=== PATIENT | female | born 1990 | race Two or more races ===

== ENCOUNTER 2024-07-16 13:37 | Observation (INO) | payer OTHER ==
[~2024-07-16] VITALS: Ht 154.9 cm; Wt 61.5 kg
--- NOTE | 2024-07-16 14:01 | ED.PDOC ---
History of Present Illness HPI Comments 33 y/o F, with a Hx of DM, presents with c/o abdominal cramping and vaginal spotting, today. Patient reports on being 28x weeks with her 4th ([id number]), currently, and reports on sudden and unprovoked onset of symptoms 2x hours prior to ED arrival. She reports no recent injuries. Patient denies any nausea, vomiting, urinary symptoms, fever, or chills at this time. 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 Family History Family History: Unknown Social History Smoker: Non-Smoker Alcohol: Denies ETOH Use Drugs: Denies Drug Use Lives In: Home Constitutional: denies: chills, diaphoresis, fatigue, fever, malaise, sweats, weakness, others EENTM: denies: blurred vision, double vision, ear bleeding, ear discharge, ear drainage, ear pain, ear ringing, eye pain, eye redness, hearing loss, mouth pain, mouth swelling, nasal discharge, nose bleeding, nose congestion, nose pain, photophobia, tearing, throat pain, throat swelling, voice changes, others Respiratory: denies: cough, hemoptysis, orthopnea, SOB at rest, shortness of breath, SOB with excertion, stridor, wheezing, others Cardiovascular: denies: chest pain, dizzy spells, diaphoresis, Dyspnea on exertion, edema, irregular heart beat, left arm pain, lightheadedness, palpitations, PND, syncope, others Gastrointestinal: reports: abdominal pain; denies: abdomen distended, blood streaked bowels, constipated, diarrhea, dysphagia, difficulty swallowing, hematemesis, melena, nausea, poor appetite, poor fluid intake, rectal bleeding, rectal pain, vomiting, others Genitourinary: reports: abnormal vagina bleeding; denies: burning, dyspareunia, dysuria, flank pain, frequency, hematuria, incontinence, pain, , vagina discharge, urgency, others Neurological: denies: dizziness, fainting, headache, left sided numbness, left sided weakness, numbness, paresthesia, pre-existing deficit, right sided numbness, right sided weakness, seizure, speech problems, tingling, tremors, weakness, others Musculoskeletal: denies: back pain, gout, joint pain, joint swelling, muscle pain, muscle stiffness, neck pain, others Integumetry: denies: bruises, change in color, change in hair/nails, dryness, laceration, lesions, lumps, rash, wounds, others Allergic/Immunocompromised: denies: Difficulty Healing, Frequent Infections, Hives, Itching, others Hematologic/Lymphatic: denies: anemia, blood clots, easy bleeding, easy bruising, swollen glands, others Endocrine: denies: excessive hunger, excessive sweating, excessive thirst, excessive urination, flushing, intolerance to cold, intolerance to heat, unexplained weight gain, unexplained weight loss, others Psychiatric: denies: anxiety, bipolar disorder, depression, hopeless, panic disorder, schizophrenia, sleepless, suicidal, others All Other Systems: Reviewed and Negative Physical Exam General Appearance: No Apparent Distress HEENT: Normal ENT Inspection, Pharynx Normal, TMs Normal Neck: Full Range of Motion, Non-Tender, Normal, Normal Inspection Respiratory: Chest Non-Tender, Lungs Clear, No Accessory Muscle Use, No Respiratory Distress, Normal Breath Sounds Cardiovascular: No Edema, No JVD, No Murmur, No Gallop, Normal Peripheral Pulses, Regular Rate/Rhythm Breast Exam: Deferred Gastrointestinal: Non Tender, No Pulsatile Mass, Normal Bowel Sounds, Soft, Other (Gravid uterus) Genitalia: Deferred Pelvic: Deferred Rectal: Deferred Extremities: No calf tenderness, Normal capillary refill, Normal inspection, Normal range of motion, Non-tender, No pedal edema Musculoskeletal : Apperance: Normal Neurologic: Alert, net developer with wcf II-XII nml as Tested, No Motor Deficits, Normal Affect, Normal Mood, No Sensory Deficits Cerebellar Function: Normal Reflexes: Normal Skin: Dry, Normal Color, Warm Lymphatic: No Adenopathy Was a procedure done? Was a procedure done?: No Differential Dx Considerations may include: at-risk , threatened , among others X-Ray, Labs, Meds, VS The patient was being sent to labor and delivery at this time we will The patient was being cleared from the emergency department's The patient will have further monitoring done over labor and delivery Time of 1ST Reevaluation: 14:00 Reevaluation 1ST: Unchanged Patient Education/Counseling: Diagnosis, Treatment, Prognosis Family Education/Counseling: No Family Present Departure 1 Departure Time of Disposition: 14:03 Impression: Primary Impression: Abdominal pain in Qualified Codes: O26.899 - Other specified related conditions, unspecified trimester; R10.9 - Unspecified abdominal pain Additional Impression: Threatened Disposition: 01 HOME / SELF CARE / HOMELESS (The patient was being sent to labor and delivery at this time) Condition: Fair Discharged With: Self Critical Care Note Critical Care Time?: No Stability Stability form required: No Heart Score Heart Score: Heart Score Response (Comments) Value History N/A 0 EKG N/A 0 Age N/A 0 Risk Factors N/A 0 Troponin N/A 0 Total 0 I personally scribed for BERNARD PALACIOS MD ([email or web address]) on 07/16/24 at 14:01. Electronically submitted by Naveen Radford ([email or web address]). BERNARD PALACIOS MD Jul 16, 2024 14:01
[2024-07-16 14:03] VITALS: BP 109/68; PULSE 106; RESP 18; TEMP 98; O2SAT 98
[2024-07-16] MEDS ORDERED: DEXTROSE (50%) 50ML SYRG IV PRN (15:00)
[2024-07-16] MEDS ORDERED: LACTATED RINGER'S 1,000 ML IV ONE (15:00)
--- NOTE | 2024-07-16 15:01 | DVH ---
LIMITED OB ULTRASOUND > 14 WKS: HISTORY: vaginal bleed/abd. pain TECHNIQUE: Multiple real-time grayscale images of the gravid uterus with duplex Doppler color flow an d M-mode spectral analysis. TRANSDUCER: Transabdominal FINDINGS/IMPRESSION: heart rate 137 beats per minute MVP 8.2 cm Cervix is closed and measures 3.2 cm. Breech Presentation Anterior Placenta without previa or abruption.
[2024-07-16] MEDS: InsuLIN REG 1unit/0.01ml Soln (100units/ml) SC SCH (15:25)
[2024-07-16] MEDS: ceFAZolin 2 GM/D5W50ml 50 ML IV ONE (15:26)
[2024-07-16] MEDS ORDERED: ACCU-CHEK COMFORT CURVE STRIP VI SCH (17:00)
--- NOTE | 2024-07-16 18:07 | DVHDS2 ---
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 Patient was counseled about treatment plan, medications, possible side effects, patientverbalized understanding. All questions were answered to the best of my ability. This discharge took greater then 30 minutes in planning, reviewing documentation, counseling the patient, and discussing with other team members." Visit Coding OBGYN Date of Service: Jul 16, 2024 Billing Provider: BALTA RODRIGUEZ DO BUSINESS AND FINANCIAL COUNSEL Common Visit Codes: 05511-[id number] INP/OBS CARE(HIGH) BUSINESS AND FINANCIAL COUNSEL Procedure Codes: 93309-95- NON-STRESS TEST BALTA RODRIGUEZ DO Jul 16, 2024 18:07
== END 2024-07-16 16:53 | disposition home or self-care (01) ==
LOC: ER 13:37 → LDRP 14:00 → UNDOADMOB 14:00 → LDRP 14:07
PROVIDERS: ADMIT Obstetrics & Gynecology; ATTEND Obstetrics & Gynecology
DX: O09.32 Supervision of pregnancy with insufficient antenatal care, second trimester (principal); O24.419 Gestational diabetes mellitus in pregnancy, unspecified control; O26.852 Spotting complicating pregnancy, second trimester; O26.892 Other specified pregnancy related conditions, second trimester; R10.9 Unspecified abdominal pain; Z79.899 Other long term (current) drug therapy; Z3A.28 28 weeks gestation of pregnancy
CPT/HCPCS: 76815; 81002; 82948; 82962; 94760; 96365; 96372; 99284; G0378; J0690; J1815